=== PATIENT | female | born 1985 | race Caucasian/White ===

== ENCOUNTER 2019-11-01 22:22 | Emergency (ER) | payer OTHER ==
[~2019-11-01] VITALS: Ht 172.7 cm; Wt 86.2 kg
[2019-11-01] MEDS ORDERED: COZAAR 25 MG TA25 M2 PO (22:37)
[2019-11-01] MEDS ORDERED: COZAAR 25 MG TA25 M1 PO (22:37)
[2019-11-02] MEDS ORDERED: FLEXERIL PO (00:25)
[2019-11-02] MEDS ORDERED: HYDROCODON-ACE1 EAC8 PO ×2 (00:25→00:39)
[2019-11-02 00:52] VITALS: BP 155/75
== END 2019-11-02 00:53 | disposition home or self-care (01) ==
LOC: M.ERS 22:22
DX: M25.512 Pain in left shoulder (principal); M25.511 Pain in right shoulder; F17.210 Nicotine dependence, cigarettes, uncomplicated; Z90.710 Acquired absence of both cervix and uterus; Z88.0 Allergy status to penicillin; Z88.6 Allergy status to analgesic agent